=== PATIENT | female | born 1985 | race African-American/Black ===

== ENCOUNTER 2018-12-29 10:56 | Emergency (ER) | payer SELFPAY ==
[~2018-12-29] VITALS: Ht 165.1 cm; Wt 53.5 kg
[2018-12-29 11:13] VITALS: BP 141/93
[2018-12-29] MEDS ORDERED: SUMA50TA3 PO (11:34)
--- NOTE | 2018-12-29 11:34 | PHYS DOC ---
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 Patient denies any exacerbating or relieving factors to her headache. She is refusing to answer questions. She keeps complaining why we are asking her old this questions. Off note she reports she used to be on Remeron, Paxil and Vistaril which she stopped taking 3 years ago after she got released from alf. 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 and a metal plate placed in its place Review of Systems Review of Systems Constitutional: Denies fever or chills [] Eyes: Denies change in visual acuity, redness, or eye pain [] HENT: Denies nasal congestion or sore throat [] Respiratory: Denies cough or shortness of breath [] Cardiovascular: No additional information not addressed in HPI [] GI: Denies abdominal pain, nausea, vomiting, bloody stools or diarrhea [] : Denies dysuria or hematuria [] Musculoskeletal: Denies back pain or joint pain [] Integument: Denies rash or skin lesions [] Neurologic: Reports headache, denies focal weakness or sensory changes [] All other systems were reviewed and found to be within normal limits, except as documented in this note. Current Medications Current Medications Current Medications Medications (Trade) Dose Ordered Sig/Marco A Start Time Stop Time Status Last Admin Dose Admin Promethazine HCl (Phenergan) 12.5 mg 1X ONCE 12/29/18 11:30 12/29/18 11:31 UNV Sumatriptan Succinate (Imitrex) 25 mg 1X ONCE 12/29/18 11:30 12/29/18 11:31 UNV Physical Exam Physical Exam Constitutional: Well developed, well nourished, no acute distress, non-toxic appearance. [] HENT: Normocephalic, atraumatic, bilateral external ears normal, oropharynx moist, no oral exudates, nose normal. [] Eyes: PERRLA, EOMI, conjunctiva normal, no discharge. [] Neck: Normal range of motion, no tenderness, supple, no stridor. [] Cardiovascular:Heart rate regular rhythm, no murmur [] Lungs & Thorax: Bilateral breath sounds clear to auscultation [] Abdomen: Bowel sounds normal, soft, no tenderness, no masses, no pulsatile masses. [] Skin: Warm, dry, no erythema, no rash. [] Back: No tenderness, no CVA tenderness. [] Extremities: No tenderness, no cyanosis, no clubbing, ROM intact, no edema. [] Neurologic: Old healed surgical incision noted over the forehead. Alert and oriented X 3, normal motor function, normal sensory function, no focal deficits noted. Cranial nerves II through XII intact Psychologic: Depressed mood, verbally aggressive Current Patient Data Vital Signs Vital Signs Date Time Temp Pulse Resp B/P (MAP) Pulse Ox O2 Delivery O2 Flow Rate FiO2 12/29/18 11:13 98.5 112 18 141/93 (109) 99 Room Air 98.5 EKG EKG [] Radiology/Procedures Radiology/Procedures [] Course & Med Decision Making Course & Med Decision Making Pertinent Labs and Imaging studies reviewed. (See chart for details) This is a 33-year-old female patient presenting to the ED today complaining of her headache for 3 days. Patient's neurologic exam is intact. Patient herself was refusing to answer questions in the ED. She is really several medications including Prempro and Paxil distal retina she took herself off. She is also on blood pressure medicines which she has not taken for unknown period of time. She does not know the names of the medicines. Blood pressure 141/93 with a HR of 112. Patient will be given Imitrex and promethazine in the Ed and D/c to home. Provided PCP list for follow up. Dragon Disclaimer Dragon Disclaimer This electronic medical record was generated, in whole or in part, using a voice recognition dictation system. Departure Departure Impression: Primary Impression: Hypertension Additional Impression: Headache Disposition: HOME, SELF-CARE Condition: STABLE Referrals: NO PCP (PCP) Follow-up with a doctor from the list provided Patient Instructions: Headache, FAQs, Hypertension Additional Instructions: You were evaluated in the emergency room for a headache. Your blood pressure was also high. We gave a list of primary care doctors, contact them today and set up a follow-up appointment to start managing your blood pressure and get you back on the medicines you need. Take the prescription medicine provided as blaise rosas. Scripts Sumatriptan Succinate (IMITREX) 50 Mg Tablet 1 TAB PO UD, #9 TAB 1 Refill Take one tablet at the onset of headache and repeat in 2 hours do not take more than 2 tablets in 24 hours Prov: JAJA PEARSON APRN 12/29/18 Problem Qualifiers Primary Impression: Hypertension Hypertension type: unspecified Qualified Codes: I10 - Essential (primary) hypertension Additional Impression: Headache Headache type: unspecified Headache chronicity pattern: unspecified pattern Intractability: not intractable Qualified Codes: R51 - Headache JAJA PEARSON APRN Dec 29, 2018 11:34
[2018-12-29] MEDS ORDERED: SUMAtriptan SUCCINATE 25 MG TABLET PO ONE (12:00)
[2018-12-29] MEDS ORDERED: PROMETHAZINE 12.5 MG TABLET. PO ONE (12:00)
== END 2018-12-29 12:12 | disposition home or self-care (01) ==
LOC: ER 10:56
DX: I10 Essential (primary) hypertension (principal); R51 Headache; F32.9 Major depressive disorder, single episode, unspecified
CPT/HCPCS: 99283; Q0169

== ENCOUNTER 2020-02-18 09:57 | Emergency (ER) | payer SELFPAY ==
[~2020-02-18] VITALS: Ht 165.1 cm; Wt 52.0 kg
[~2020-02-18 09:57] MED LIST: SUMA50TA3 PO
[2020-02-18 10:30] VITALS: BP 157/106
--- NOTE | 2020-02-18 11:44 | RAD ---
XR CHEST 1V INDICATION: Reason: left side scapular pain / Spl. Instructions: / History: . COMPARISON STUDY: None. FINDINGS: Lungs: Normal lung volume. No pulmonary mass or consolidation. The tracheobronchial tree and hilar st ructures are normal. Pleura: No pleural effusion or pneumothorax. Heart and Mediastinum: The cardiomediastinal silhouette is normal. The great vessels of the thorax ar e normal. Bones and Soft Tissues: The bones and soft tissues are within normal limits. IMPRESSION: No acute cardiopulmonary process. Electronically signed by: Rafita Green MD (02/18/2020 11:42 AM) [id number]
--- NOTE | 2020-02-18 11:45 | RAD ---
XR CERVICAL SPINE 2-3V DATE: 02/18/2020 11:15 AM INDICATION: Reason: neck pain, NUMBNESS DOWN LEFT ARM / Spl. Instructions: / History: COMPARISON: None. FINDINGS: The cervical spine is visualized to the level of the cervicothoracic junction on the latera l views. Bones/Alignment: No evidence of acute fracture. There is no listhesis. Normal alignment of the later al masses of C1 on C2. Joints: The disc space heights are normal. The facets are normally aligned. Soft tissue: No significant prevertebral soft tissue swelling. IMPRESSION: Normal exam Electronically signed by: Rafita Green MD (02/18/2020 11:43 AM) [id number]
--- NOTE | 2020-02-18 12:01 | PHYS DOC ---
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 Patient denies any injury. Patient denies any chest pain, no abdominal pain, no nausea vomiting. Patient denies any cough or fever. Review of Systems: Review of Systems: Constitutional: Denies fever or chills. [] Eyes: Denies change in visual acuity. [] HENT: Denies nasal congestion or sore throat. [] Respiratory: Denies cough or shortness of breath. [] Cardiovascular: Denies chest pain or edema. [] GI: Denies abdominal pain, nausea, vomiting, bloody stools or diarrhea. [] : Denies dysuria. [] Musculoskeletal: Positive for left scapular pain, neck pain. Integument: Denies rash. [] Neurologic: Denies headache, focal weakness or sensory changes. [] Endocrine: Denies polyuria or polydipsia. [] Lymphatic: Denies swollen glands. [] Psychiatric: Denies depression or anxiety. [] Heart Score: Risk Factors: Risk Factors: DM, Current or recent (<one month) smoker, HTN, HLP, family history of CAD, obesity. Risk Scores: Score 0 - 3: 2.5% MACE over next 6 weeks - Discharge Home Score 4 - 6: 20.3% MACE over next 6 weeks - Admit for Clinical Observation Score 7 - 10: 72.7% MACE over next 6 weeks - Early Invasive Strategies Allergies: Allergies: Allergies Coded Allergies Type Severity Reaction Last Updated Verified No Known Drug Allergies 12/29/18 No Physical Exam: PE: Constitutional: Well developed, well nourished, no acute distress, non-toxic appearance. [] HENT: Normocephalic, atraumatic, bilateral external ears normal, oropharynx moist, no oral exudates, nose normal. [] Eyes: PERRLA, EOMI, conjunctiva normal, no discharge. [] Neck: Normal range of motion, no tenderness, supple, no stridor. [] Cardiovascular:Heart rate regular rhythm, no murmur [] Lungs & Thorax: Bilateral breath sounds clear to auscultation [] Abdomen: Bowel sounds normal, soft, no tenderness, no masses, no pulsatile masses. [] Skin: Warm, dry, no erythema, no rash. [] Back: No tenderness, no CVA tenderness. [] Extremities: No tenderness, no cyanosis, no clubbing, ROM intact, no edema. [] Neurologic: Alert and oriented X 3, normal motor function, normal sensory function, no focal deficits noted. No focal deficits, patient can open and close her left hand without any problem Psychologic: Affect normal, judgement normal, mood normal. [] Current Patient Data: Vital Signs: Vital Signs Date Time Temp Pulse Resp B/P (MAP) Pulse Ox O2 Delivery O2 Flow Rate FiO2 02/18/20 10:30 98.2 81 16 157/106 (123) 100 Room Air 98.2 EKG: EKG: [] Radiology/Procedures: Radiology/Procedures: [][facility] [address] [place] [address] IMAGING REPORT Signed PATIENT: CHUCK ELAINE ACCOUNT: [id number] : 1985 LOCATION: ER AGE: 34 SEX: F EXAM STATUS: REG ER ORD. PHYSICIAN: ADELAIDE FLORES DO REASON: left side scapular pain PROCEDURE: CHEST AP ONLY XR CHEST 1V INDICATION: Reason: left side scapular pain / Spl. Instructions: / History: . COMPARISON STUDY: None. FINDINGS: Lungs: Normal lung volume. No pulmonary mass or consolidation. The tracheobronchial tree and hilar structures are normal. Pleura: No pleural effusion or pneumothorax. Heart and Mediastinum: The cardiomediastinal silhouette is normal. The great vessels of the thorax are normal. Bones and Soft Tissues: The bones and soft tissues are within normal limits. IMPRESSION: No acute cardiopulmonary process. Electronically signed by: Rafita Tavares MD (02/18/2020 11:42 AM) [id number] DICTATED and SIGNED BY: RAFITA TAVARES MD DATE: 02/18/20 [id number] [facility] [address] [place] [address] IMAGING REPORT Signed PATIENT: CHUCK ELAINE ACCOUNT: [id number] : 1985 LOCATION: ER AGE: 34 SEX: F EXAM STATUS: REG ER ORD. PHYSICIAN: ADELAIDE FLORES DO REASON: neck pain, NUMBNESS DOWN LEFT ARM PROCEDURE: CERVICAL SPINE 2-3V XR CERVICAL SPINE 2-3V DATE: 02/18/2020 11:15 AM INDICATION: Reason: neck pain, NUMBNESS DOWN LEFT ARM / Spl. Instructions: / History: COMPARISON: None. FINDINGS: The cervical spine is visualized to the level of the cervicothoracic junction on the lateral views. Bones/Alignment: No evidence of acute fracture. There is no listhesis. Normal alignment of the lateral masses of C1 on C2. Joints: The disc space heights are normal. The facets are normally aligned. Soft tissue: No significant prevertebral soft tissue swelling. IMPRESSION: Normal exam Electronically signed by: Rafita Tavares MD (02/18/2020 11:43 AM) [id number] DICTATED and SIGNED BY: RAFITA TAVARES MD DATE: 02/18/20 [id number] 0 Course & Med Decision Making: Course & Med Decision Making Pertinent Labs and Imaging studies reviewed. (See chart for details) Patient is a 34-year-old female who present to ER for evaluation of neck pain with tingling and numbness sensation in her, FIFTH, fourth and middle finger, x-ray of the cervical spine did not show any acute problem. Her symptoms consistent with cervical radiculopathy. Patient will be discharged home, follow-up with her family physician for outpatient evaluation with cervical MRI. Dragon Disclaimer: Dragon Disclaimer: This electronic medical record was generated, in whole or in part, using a voice recognition dictation system. Departure Departure Impression: Primary Impression: Cervical radiculopathy Disposition: 01 DC HOME SELF CARE/HOMELESS Condition: STABLE Referrals: NO PCP (PCP) FOLLOW UP WITH YOUR DOCTOR FOR OUTPATIENT EVALUATION WITH MRI OF YOUR CERVICAL SPINE NEXT WEEK. Patient Instructions: Cervical Radiculopathy Additional Instructions: Thank you for visiting our Emergency Department. We appreciate you trusting us with your care. If any additional problems come up don't hesitate to return to visit us. Please follow up with your primary care provider so they can plan additional care if needed and know about the problem that you had. If symptoms worsen come back to the Emergency Department. Any concerning symptoms that start such as chest pain, shortness of air, weakness or numbness on one side of the body, running high fevers or any other concerning symptoms return to the ER. Scripts Prednisone (PREDNISONE) 20 Mg Tablet 1 TAB PO DAILY for 7 Days, #7 TAB Prov: ADELAIDE FLORES DO 02/18/20 ADELAIDE FLORES DO Feb 18, 2020 12:01
[2020-02-18] MEDS ORDERED: PRED20TA PO (12:05)
== END 2020-02-18 12:30 | disposition home or self-care (01) ==
LOC: ER 09:57
DX: M54.12 Radiculopathy, cervical region (principal); I10 Essential (primary) hypertension
CPT/HCPCS: 71045; 72040; 99284